=== PATIENT | female | born 1970 | race Caucasian/White ===

== ENCOUNTER 2022-11-14 11:15 | Outpatient (CLI) | payer OTHER, SELFPAY ==
--- NOTE | ~2022-11-14 | US_ITS ---
Duplex Sonography of the left extremity: Indication: Pain Findings: Sagittal and transverse B-mode images as well as color-flow imaging were performed on the l eft femoral and popliteal veins. B-mode examination was done without and with compression in the tra nsverse plane. There is good visualization of the common femoral, proximal profunda femoral, superfi cial femoral, greater saphenous, and popliteal veins. Normal flow was seen on color-flow imaging. No rmal compressibility was demonstrated. Visualized calf veins are also patent. Impression: No evidence of deep vein thrombosis involving the left lower extremity. Reviewed, dictated and finalized at location M. Impression: No evidence of deep vein thrombosis involving the left lower extremity.
== END 2022-11-14 11:16 | disposition home or self-care (01) ==
PROVIDERS: PCP Physician Assistant; Visit Provider Physician Assistant
DX: M79.605 Pain in left leg (principal)
CPT/HCPCS: 93971

== ENCOUNTER 2023-11-16 08:58 | Emergency (ER) | payer OTHER, SELFPAY ==
[2023-11-16 09:13] VITALS: BP 126/78; PULSE 80; RESP 16; TEMP 36.6; O2SAT 100
--- NOTE | 2023-11-16 09:47 | ED.LOWEXIN ---
HPI - Extremity Injury (Lower) General Chief Complaint: Extremity Injury, Lower Stated Complaint: Right Foot Pain Time Seen by Provider: 11/16/23 09:48 Source: patient and RN notes reviewed Mode of arrival: ambulatory Limitations: no limitations History of Present Illness HPI Narrative: 53-year-old female presents concern for right foot pain. Reports pain is in the arch of the foot and radiates back up to the Achilles tendon. She denies any injury or trauma. Reports pain started intermittently in August, she reports it has worsened in the last 3 days after she stood on concrete for a long time. She reports she has used an ice bottle to roll on her foot, taken Aleve which helps a little bit. She reports the pain had been worse in the morning, now it is worse any time she goes from sitting to standing. She denies bruising. Reports some swelling on the pedal foot yesterday. MD complaint: other (Foot pain) Related Data Home Medications Medication Instructions Recorded Confirmed bupropion HCl 300 mg 24 hr tablet, 300 mg PO DAILY 11/16/23 11/16/23 extended release dextroamphetamine-amphetamine 10 10 mg PO DAILY 11/16/23 11/16/23 mg tablet epinephrine 0.3 mg/0.3 mL 0.3 mg IM DIRECTED 11/16/23 11/16/23 injection, auto-injector insulin syringe-needle U-100 0.3 11/16/23 11/16/23 mL 31 gauge x /16 levothyroxine 175 mcg tablet 175 mcg PO DAILY 11/16/23 11/16/23 Allergies Allergy/AdvReac Type Severity Reaction Status Date / Time peanut Allergy Mild Itching Verified 11/16/23 09:30 mold Allergy Difficulty Verified 11/16/23 09:30 Breathing Review of Systems Review of Systems: CONSTITUTIONAL: Denies malaise, chills, sweats, or fever. SKIN: Denies rash or itching, open skin, laceration, abrasion, redness, warmth MUSCULOSKELETAL: Reports right foot pain, 1 instance of swelling NEUROLOGIC: Denies numbness, weakness All systems reviewed & are unremarkable except as noted in HPI and below PMFSH Comments At time of signature, agree with nursing past medical, surgical, social and family history. There is no relevant family history pertinent to the presenting complaint Exam Narrative: GENERAL: Well-appearing, well-nourished, and in no acute distress. HEAD: Normocephalic, atraumatic. EYES: PERRLA, conjunctivae clear NECK: Supple. CHEST: Speaks in full sentences. No respiratory distress. HEART: Regular rate and rhythm. Normal and equal peripheral pulses. EXTREMITIES: Right foot, digits have grossly normal strength and sensation, normal range of motion. No edema or ecchymosis. Normal sensation with sensitivity to light touch and pain. No point tenderness. No open wounds, no skin tenting, no devitalized tissue or atrophy, no trophic changes, no obvious deformity, alignment normal, nearby joints and structures intact. Distal pulses palpable and equal bilaterally, skin warm, dry, pink. Capillary refill less than 3 seconds. SKIN: Warm, dry, no rash. NEURO: Alert and oriented x3. PSYCH: Normal mood and affect Course Course Emergency Course: Patient is aware of diagnosis, understands and agrees to treatment plan. Anticipatory guidance given. Patient agrees to follow-up as directed and is aware of reasons to seek care at the emergency department. Portions of this record may have been created with voice recognition software Level of Care: Express Care Visit Vital Signs Vital signs: Vital Signs Temperature 97.8 F 11/16/23 09:13 Pulse Rate 80 11/16/23 09:13 Respiratory Rate 16 11/16/23 09:13 Blood Pressure 126/78 11/16/23 09:13 Pulse Oximetry 100 11/16/23 09:13 Temperature 97.8 F 11/16/23 09:13 Pulse Rate 80 11/16/23 09:13 Respiratory Rate 16 11/16/23 09:13 Blood Pressure 126/78 11/16/23 09:13 Pulse Oximetry 100 11/16/23 09:13 Reviewed. MDM - Extremity Injury (Lower) MDM Narrative Medical decision making narrative: Patients injury and pain is consistent with mu
== END 2023-11-16 09:59 | disposition home or self-care (01) ==
PROVIDERS: Emergency Provider Nurse Practitioner; PCP Physician Assistant
DX: M79.671 Pain in right foot (principal); M19.90 Unspecified osteoarthritis, unspecified site; F41.9 Anxiety disorder, unspecified
CPT/HCPCS: 99213; G0463

== ENCOUNTER 2024-10-16 09:17 | Outpatient (CLI) | payer OTHER, SELFPAY ==
--- NOTE | ~2024-10-16 | MR_ITS ---
MRI of the right knee Clinical history: Chondromalacia Technique: Coronal proton density and proton density-weighted images, sagittal proton-density and T2 fat-sat images, and axial proton-density fat-saturated images were acquired. Findings: Anterior and posterior cruciate ligaments are intact. Medial collateral ligament and the la teral collateral ligament complex are intact. Popliteus tendon is intact. No definite medial or lateral meniscal tear. There is high-grade chondral malacia along the lateral facet of the patella. There is diffuse moderat e to high-grade chondromalacia the femoral trochlea. There is moderate chondral thinning at the media l and lateral joint lines. Small tricompartmental osteophytes are present. Extensor mechanism is intact. Minimal joint effusion present. Moderate Park's cyst present, with sep tations. Impression: Tricompartmental degenerative change, as detailed above. Moderate Park's cyst. Reviewed, dictated and finalized at [facility]. Impression: Tricompartmental degenerative change, as detailed above. Moderate Park's cyst.
== END 2024-10-16 09:18 | disposition home or self-care (01) ==
LOC: MICIMG 09:21
PROVIDERS: PCP Orthopaedic Surgery; Visit Provider Orthopaedic Surgery
DX: M17.11 Unilateral primary osteoarthritis, right knee (principal); M71.21 Synovial cyst of popliteal space [Baker], right knee; M94.261 Chondromalacia, right knee
CPT/HCPCS: 73721

== ENCOUNTER 2024-11-22 02:09 | Day surgery (SDC) | payer OTHER, SELFPAY ==
[2024-11-11 08:38] VITALS: BMI 36.1
--- NOTE | 2024-11-11 08:47 | PC.NURSE ---
Report to the Outpatient Waiting Room, entrance under the green pavilion located off [facility], at time _0800_ on date _[id number]_. Planned Procedure Time: _1000_.? Time changes happen often and if your time is changed the preop area will call you the afternoon before. - You and your visitor will be asked to self-screen and do not enter if you have any COVID symptoms. Please call surgeon if you need to reschedule. - A mask is optional within the hospital at this time. Patients may have clear liquids (water, carbonated beverages, clear teas, apple juice) until 3 hours prior to surgery with a maximum of 20 ounces. - No food from midnight until time of surgery and no smoking, or chewing tobacco (or any form of nicotine). No chewing gum, candy or mints. Take only the following medications with a SIP of water on the morning of surgery: __Levothyroxine and Bupropion DO NOT STOP ANY OF YOUR OTHER PRESCRIPTION MEDICATIONS PRIOR TO SURGERY EXCEPT THE FOLLOWING Hold all vitamins and supplements for 3 days per anesthesiologist. Medications to discontinue per physician Date to take last vqdn__[phone]___ Please no make-up, nail colombian, hairspray, perfume, deodorant, or body powder the day of surgery.? No jewelry (including any body piercings) or valuables the day of surgery, leave them at home.? Please take a shower or bath the night before, or the morning of, surgery with an antibacterial soap.? Wear comfortable, loose fitting clothing.? - Jewelry must be removed prior to entering the operating room.? Rings and piercings that are not removed may be cut off. - The hospital will not accept responsibility for valuables.? - Please leave all valuables, including medications, at home the day of surgery. If you are going home after surgery, a licensed ambulance driver must drive you home.? - NO public transportation without another adult if you receive anesthesia. - We recommend that an adult stay with you for 24 hours following discharge. - We also recommend that you do not drive, make important decision, drink alcoholic beverages, or take any drugs that were not prescribed by your health care provider for at least 24 hours after your discharge time. Follow any additional instructions given to you from your surgeon. Telephone instructions given to __Aisha___and asked if any additional questions and then verbalized understanding. Patient advised to call surgeon office or pre surgery nurse liaison [phone] if any additional questions.
--- NOTE | 2024-11-18 07:03 | PM.IMHP ---
H&P: HPI History of Present Illness Date/Time: 11/18/24 07:03 Chief Complaint: Patient is knee pain right. She has locking catching with any manipulation. Pain is localized medially and worse with activity and somewhat relieved by rest. She has failed conservative treatment and has an MRI that shows meniscal tear. She would like to consider arthroscopic intervention at this time. Review of Systems Musculoskeletal: Musculoskeletal: Reports arthralgias, Reports joint swelling and Reports stiffness PMFSH Past Medical History Medical History Thyroid disease Gall bladder disease Arthritis Anxiety Surgical History Surgical History History of total left knee replacement History of hysterectomy History of cholecystectomy H/O gastric sleeve Family History Family History Other Alcoholism Cancer Cerebrovascular accident Depression Hypertension Thyroid disease Social History Social History Years smoked: 4 Smoking status: Current every day smoker Tobacco type: cigarettes Alcohol intake: current Alcohol use details: occasionally Substance use type: does not use Do You Feel Safe in your Home?: Yes Lack of Transportation: No Lack of Food: Never True Current Housing: I Have Housing Concerned About Future Housing: No Difficulty Paying Gas/Electric Bills: No Difficulty Paying for Meds: No Currently Unemployed: No Education: Trade/Vocational Certificate Difficulty w/ Childcare or Family Care: No Living arrangements: with family Occupation/Education: occupation Spiritual care concerns: No Meds Home Medications and Allergies Home Medications ?Medication ?Instructions ?Recorded ?Confirmed ?Type bupropion HCl 300 mg 24 hr tablet, 300 mg PO DAILY 11/16/23 11/11/24 History extended release epinephrine 0.3 mg/0.3 mL 0.3 mg IM DIRECTED 11/16/23 11/11/24 History injection, auto-injector levothyroxine 175 mcg tablet 175 mcg PO DAILY 11/16/23 11/11/24 History dextroamphetamine-amphetamine 20 20 mg PO TID 08/26/24 11/11/24 History mg tablet progesterone micronized 100 mg 100 mg PO QAM 08/26/24 11/11/24 History capsule multivitamin (Daily Multi-Vitamin 1 tablet PO DAILY 11/11/24 11/11/24 History tablet) Allergies Allergy/AdvReac Type Severity Reaction Status Date / Time Penicillins Allergy Severe rash Verified 11/11/24 08:35 peanut Allergy Mild Itching Verified 11/11/24 08:35 mold Allergy Difficulty Verified 11/11/24 08:35 Breathing Exam Narrative: On exam patient is catching and locking of the right knee. She has mechanical-type symptoms. She is tender medially has a positive Janet's and pain to palpation manipulation. She walks with an antalgic gait. Neurologically she is grossly intact. Radiology Reports: Comments: Magnetic Resonance Report Signed with Addenda Patient: Aisha Wills cc: Jared Benites MD~ ADDENDUMAdditional review of images demonstrates hyperintense signal in the posterior horn of the medial meniscus. This could reflect a subtle horizontal/oblique tear versus intrasubstance degenerative signal. MRI of the right knee Clinical history: Chondromalacia Technique: Coronal proton density and proton density-weighted images, sagittal proton-density and T2 fat-sat images, and axial proton-density fat-saturated images were acquired. Findings: Anterior and posterior cruciate ligaments are intact. Medial collateral ligament and the lateral collateral ligament complex are intact. Popliteus tendon is intact. No definite medial or lateral meniscal tear. There is high-grade chondral malacia along the lateral facet of the patella. There is diffuse moderate to high-grade chondromalacia the femoral trochlea. There is moderate chondral thinning at the medial and lateral joint lines. Small tricompartmental osteophytes are present. Extensor mechanism is intact. Minimal joint effusion present. Moderate Park's cyst present, with septations. Impression: Tricompartmental degenerative change, as detailed above. Moderate Park's cyst. Reviewed, dictated and finalized at location . Knee X-Ray 10/19/24 Knee MRI 10/18/24 Orthopedics Result Report 10/19/24 Assessment and Plan Assessment and plan (1) Acute medial meniscus tear of right knee: Code(s): S83.241A - Other tear of medial meniscus, current injury, right knee, initial encounter Status: Acute Assessment and Plan: Patient is knee pain right. She has a meniscal tear. She has failed conservative treatment like to consider arthroscopic intervention. I discussed the risks, benefits, limitations, and alternatives in detail. Will proceed with arthroscopy of the right knee partial meniscectomy proceed as indicated. She understands and agrees.
[2024-11-22] VITALS (9 sets, daily range): BP systolic 97–143; BP diastolic 63–79; PULSE 59–92; RESP 12–20; TEMP 36.5–36.9; O2SAT 96–99
--- OUTSIDE RECORDS SUMMARY | 2024-11-22 02:13 | XMS_ITS | Clinical Summary ---
Author Organization [facility] [address] Address [address] [place] [address] Phone Care Team Providers Care Invoicing Machine Operator Name Role Phone Raj Maloney PAC Primary Care Provider Allergies Active Allergy Reactions Criticality Noted Date Comments Penicillins Hives High 05/16/2016 Medications Multiple Vitamin (MULTI-VITAMINS) Tablet Take by mouth. Active propranolol (INDERAL LA) 80 MG CAPSULE SR 24 HR TAKE 1 CAPSULE BY MOUTH DAILY. 30 Cap 2 12/15/2018 Active busPIRone (BUSPAR) 5 MG TabletIndication s:Recurrent major depressive disorder, remission status unspecified (HCC) TAKE 1 TABLET BY MOUTH 2 TIMES DAILY 60 Tab 2 12/25/2018 Active azithromycin (ZITHROMAX Z-PJ) 250 MG Tablet 2 tab(s) daily for 1 day, then 1 tab(s) daily for days 2-5. 6 Tab 03/22/2019 Active tiZANidine HCl 4 MG CapsuleIndicatio ns:Contusion of right knee, subsequent encounter Take 1 Capsule by mouth every 8 hours as needed 30 Cap 2 09/07/2019 Active levothyroxine (SYNTHROID) 175 MCG Tablet Take 1 tablet by mouth every day 30 minutes before food or other medications. 30 Tab 2 09/07/2019 Active FLUoxetine (PROZAC) 40 MG CapsuleIndicatio ns:Recurrent major depressive disorder, remission status unspecified (HCC) Take one capsule by mouth daily. 30 Cap 2 09/07/2019 Active Active Problems Problem Noted Date Diagnosed Date Trochanteric bursitis of left hip 01/20/2018 Spondylosis of lumbar region without myelopathy or radiculopathy 10/29/2017 Sacroiliac joint dysfunction of left side 2017 Trochanteric bursitis of both hips 07/21/2017 Chronic bilateral low back pain with bilateral s ciatica 11/20/2016 Tuberculin skin test encounter 06/03/2016 Acquired hypothyroidism 05/16/2016 Obesity, morbid, BMI 40.0-49.9 05/16/2016 Recurrent major depressive disorder 05/16/2016 Immunizations Immunization Administration Dates Next Due Influenza Vaccine 10/03/2016 TB Skin Test 05/31/2016 Family History Medical History Relation Name Comments Diabetes Father Ovarian Cancer Maternal Aunt Cancer Maternal Grandfather Heart Disease Maternal Grandmother Endometriosis Maternal Uncle Hypertension Mother Cancer Paternal Grandfather Relation Name Status Comments Father Alive Maternal Aunt Maternal Grandfather Maternal Grandmother Maternal Uncle Mother Alive Paternal Grandfather Social History Tobacco Use Types Packs/Day Years Used Date Smoking Tobacco: Former Smokeless Tobacco: Never Tobacco Cessation:Counseling Given: No Alcohol Use Standard Drinks/Week Comments Yes 0 (1 standard drink = 0.6 oz pur e alcohol) drinks socially PHQ-2 Answer Date Recorded PHQ-2 Score 0 12/14/2018 Comments No Sex and Gender Information Value Date Recorded Sex Assigned at Not on file Legal Sex Female 2:38 AM CDT Gender Identity Not on file Sexual Orientation Not on file Last Filed Vital Signs Vital Sign Reading Time Taken Comments Blood Pressure 128/84 10/02/2018 11:09 AM CDT Pulse 60 10/02/2018 11:09 AM CDT Temperature 37.4 C (99.4 F) 10/02/2018 11:09 AM CDT Respiratory Rate 14 07/10/2018 11:06 AM CDT Oxygen Saturation 98% 10/02/2018 11:09 AM CDT Inhaled Oxygen Concentration - - Weight 109.8 kg (242 lb) 10/02/2018 11:09 AM CDT Height 168.9 cm (5' 6.5) 10/02/2018 11:09 AM CD T Body Mass Index 38.47 10/02/2018 11:09 AM CDT Plan of Treatment Health Maintenance Due Date Last Done Comments Hepatitis C Virus (HCV) Screening 1971 TdaP Immunization 1971 Hepatitis B Immunization (1 of 3 - 19+ 3-dose series) 1990 Cologuard 02/29/2016 Colonoscopy 02/29/2016 Colorectal Cancer Screening 02/29/2016 Immunochemical Fecal Occult Blood 02/29/2016 Pneumococcal Immunization (5 0+ years) (1 of 1 - PCV) 2021 Zoster Immunization (1 of 2) 2021 SARS-COV-2 Immunization (3 - 2023- season) 2023 09/24/2020, 09/03/2020 Influenza Immunization (#1) 2024 10/03/2016 Respiratory Syncytial Virus (RSV) Immunization (Adult) (1 - 1-dose 75+ series) 2046 Discussion re Starting/Frequency of Mammograms Discontinued 04/02/2017 Mammogram Discontinued 04/02/2017 Human Papillomavirus (HPV) Immunization Aged Out No longer eligible based on patient's age to complete this topic Meningococcal Immunization (ACWY) Aged Out No longer eligible based on patient's age to complete this topic Rotavirus Immunization Aged Out No lo nger eligible based on patient's age to complete this topic Procedures Procedure Name Priority Date/Time Associated Diagnosis Comments ALEX SCREENING BILATERAL DIGITAL WO CAD Routine 04/02/2017 1:39 PM ELECTRICAL PRODUCTS ENGINEER Visit for screening mammogram from Last 3 Months or Most Recently Relevant to Health Maintenance Results * ALEX SCREENING BILATERAL DIGITAL WO CAD (04/02/2017 1:39 PM ELECTRICAL PRODUCTS ENGINEER) Anatomical Region Laterality Modality breast Bilateral Mammography 04/02/2017 1:56 PM ELECTRICAL PRODUCTS ENGINEER Impressions 04/02/2017 1:56 PM ELECTRICAL PRODUCTS ENGINEER ASSESSMENT: BI-RADS 1; NEGATIVE RECOMMENDATIONS: Yearly screening mammogram of both breasts in 1 year. CAD used DICTATION LOCATION: [facility] Signed By: Sherri Loredo M.D. Narrative 04/02/2017 1:56 PM ELECTRICAL PRODUCTS ENGINEER PATIENT HISTORY: Family history of ovarian cancer at age 50 or over in maternal aunt. Took hormonal contraceptives for 6 months. Patient's BMI is 41.7. Last mammogram was performed 2 years and 2 months ago. REASON FOR EXAM: screening, asymptomatic. FINDINGS: ALEX SCREENING BILATERAL DIGITAL WO CAD Bilateral CC and MLO view(s) were taken. Technologist: RT Dami(R)(M) Prior study comparison: February 13, 2015, bilateral mammogram, performed at [facility]. The breast tissue is average. No significant changes when compared with prior studies. Raj RUDD IMG MAMMO ORDERABLES F inal Result from Last 3 Months or Most Recently Relevant to Health [place] [address] [employer] Care Teams Invoicing Machine Operator Relationship Specialty Start Date End Date Raj Maloney PAC [address], [place] [id number] PCP - General Family Medicine 05/16/16
--- OUTSIDE RECORDS SUMMARY | 2024-11-22 02:13 | XMS_ITS | Clinical Summary ---
Author Organization [facility] [employer] Address [address] [place] [address] Care Team Providers Care Warp Dyeing Tender Name Role Phone Shon Klein DO Unavailable Source Comments [facility] [employer],non-owned Affiliates and Associated Physician Practices is amultiple site organization consisting of ambulatory clinics and hospital sitesin [place], [place], [place] and [place]. This disclosure is being madepursuant to the Care Everywhere program and may not contain all information available regarding this patient. Last updated 18.[facility] [employer] Allergies Active Allergy Reactions Criticality Noted Date Comments Penicillins Urticaria 01/25/2015 Medications * Be aware that medications may not be up to date on this document. Alwaysverify current medications with the patient. Calcium Carbonate-Vitami n D (CALCIUM + D PO) Active Cyanocobalamin (B-12 PO) Active Ferrous Sulfate (IRON CR PO) Active HYDROcodone-acet aminophen (NORCO) 5-325 MG tablet Take 1 Tab by mouth every 4 hours as needed for Pain 50 Tab 02/05/2016 Active oxyCODONE-acetam inophen (PERCOCET) 5-325 MG tablet Take 1 Tab by mouth every 4 hours as needed for Pain 50 Tab 02/26/2016 Active levothyroxine (SYNTHROID) 150 MCG tablet Take 150 mcg by mouth once daily 0 02/27/2016 Active oxyCODONE-acetam inophen (PERCOCET) 5-325 MG tablet Take 1 Tab by mouth every 4 hours as needed for Pain 50 Tab 03/25/2016 Active meloxicam (MOBIC) 15 MG tablet Take 1 Tab by mouth once daily 30 Tab 04/01/2016 Active Active Problems Problem Noted Date Diagnosed Date History of total left knee replacement on 01/26/2016 Resolved Problems Problem Noted Date Diagnosed Date Resolved Date Primary osteoarthritis of left knee 12/28/2015 01/26/2016 History of arthroscopy of le ft knee on 02-21-15 02/24/2015 01/26/2016 Social History Tobacco Use Types Packs/Day Years Used Date Smoking Tobacco: Former Cigarettes Q uit: 01/21/2001 Alcohol Use Standard Drinks/Week Comments Yes 0 (1 standard drink = 0.6 oz pur e alcohol) rarely Comments No Sex and Gender Information Value Date Recorded Sex Assigned at Not on file Legal Sex Female 6:07 AM FINISHED YARN EXAMINER Gender Identity Not on file Sexual Orientation Not on file Last Filed Vital Signs Vital Sign Reading Time Taken Comments Blood Pressure 125/57 01/25/2016 8:36 AM CDT Pulse 83 01/25/2016 8:36 AM CDT Temperature 36.9 C (98.4 F) 01/25/2016 8:36 AM CDT Respiratory Rate 18 01/25/2016 8:36 AM CDT Oxygen Saturation 99% 01/25/2016 8:36 AM CDT Inhaled Oxygen Concentration - - Weight 112 kg (247 lb) 01/22/2016 6:45 AM CDT Height 170.2 cm (5' 7) 01/22/2016 6:45 AM CDT Body Mass Index 38.69 01/22/2016 6:45 AM CDT Plan of Treatment Health Maintenance Due Date Last Done Comments COLOGUARD (AGES 45-75) - COL ON CA SCREENING 1971 COLON MONITORING 1971 COLONOSCOPY - COLON CA SCREENING 1971 CT COLONOGRAPHY - COLON CA SCREENING 1971 Colorectal Cancer Screening 1971 FIT - COLON CA SCREENING 1971 FLEX SIG - COLON CA SCREENING 1971 LIPID TESTING 1971 MAMMOGRAM 1971 HIV SCREENING 1986 HEPATITIS C SCREENING 02/23/1989 DTAP/TDAP/TD VACCINES (1 - Tdap) 1990 HEPATITIS B VACCINE (1 of 3 - 19+ 3-dose series) 1990 PNEUMOCOCCAL VACCINE 50+ (1 of 1 - PCV) 2021 ZOSTER VACCINE (1 of 2) 2021 COVID-19 VACCINE (3 2023-2 5 season) 2023 09/24/2020, 09/03/2020 DEPRESSION SCREENING 04/14/2024 INFLUENZA VACCINE (#1) 2024 HIB VACCINE Aged Out No longer eligi ble based on patient's age to complete this topic HPV VACCINE Aged Out No longer eligi ble based on patient's age to complete this topic MENINGOCOCCAL (Group B) VACCINE SHARED DECISION-MAKING Aged Out No longer eligible based on patient's age to complete this topic MENINGOCOCCAL GROUPS A/C/Y/W VACCINE Aged Out No longer eligible b ased on patient's age to complete this topic Medical Devices Implanted Type Area Technical Assistance Consultant Device Identifier Shelf Expiration Date Model / Serial / Lot Cmnt Bone Co Hv 40gm Implanted:Qty: 1 on 01/22/2016 by Shon Klein DO at [facility] Left: Knee [employer] 06/11/2017 [id number] / / [id number] Bsplt Tib Agc Kn Post Stab Mld Prm Intlk Implanted:Qty: 1 on 01/22/2016 by Shon Klein DO at [facility] Left: Knee [employer] [id number] 06/15/2020 [id number] / / [id number] Cmpnt Ptlr 34mm 1 Pg Wire Ascnt Arcm Kn Implanted:Qty: 1 on 01/22/2016 by Shon Klein DO at [facility] Left: Knee [employer] [id number] 11/05/2020 [id number] / / [id number] Cmpnt Fem Kn Lt Cr Agc Por [id number] Implanted:Qty: 1 on 01/22/2016 by Shon Klein DO at [facility] Left: Knee [employer] [id number] 12/26/2025 [id number] / / [id number] Insurance [facility] Advance Directives * Full Code (Latest Code Status on File) Date Activated Date Inactivated Comments 01/22/2016 10:57 AM 01/25/2016 1:32 PM Care Teams Warp Dyeing Tender Relationship Specialty Start Date End Date Shon Klein DO Orthopedic Surgery 01/25/15
--- OUTSIDE RECORDS SUMMARY | 2024-11-22 02:13 | XMS_ITS | Encounter Summary ---
Author Organization [facility] Address [address] [place] [address] Phone Care Team Providers Care Dye And Chemical Coordinator Name Role Phone Raj Maloney PAC Primary Care Provider Reason for Visit * Reason Comments Medication Refill Encounter Details Date Type Department Care Team (Late st Contact Info) Description 02/01/2020 Refill [facility] [address] [place] [address] Raj Maloney, PAC [address] [place], [place] [address] Medication Refill Social History Tobacco Use Types Packs/Day Years Used Date Smoking Tobacco: Former Smokeless Tobacco: Never Alcohol Use Standard Drinks/Week Comments Yes 0 (1 standard drink = 0.6 oz pur e alcohol) drinks socially PHQ-2 Answer Date Recorded PHQ-2 Score 0 12/14/2018 Comments No Sex and Gender Information Value Date Recorded Sex Assigned at Not on file Legal Sex Female 2:38 AM CDT Gender Identity Not on file Sexual Orientation Not on file documented as of this encounter Miscellaneous Notes * Telephone Encounter - Gissel Rudd CMA - 02/01/2020 1:12 PM CDT Requested Prescriptions Pending Prescriptions Disp Refills ??? FLUoxetine (PROZAC) 40 MG Capsule [Pharmacy Med Name: FLUoxetine HCl 40 MG Oral Capsule] 30 Cap0 Sig: Take 1 capsule by mouth once daily ??? tiZANidine HCl 4 MG Capsule [Pharmacy Med Name: tiZANidine HCl 4 MG Oral Capsule] 30 Cap 0 Sig: TAKE 1 CAPSULE BY MOUTH EVERY 8 HOURS NEEDED Patient has moved from area and has a new primary. * Telephone Encounter - Raj Maloney PAC - 02/01/2020 8:01 AM CDT Please refill as requested. Thank you. documented in this encounter Plan of Treatment Not on file documented as of this encounter Visit Diagnoses Diagnosis Recurrent major depressive disorder, remission status unspecified (HCC) Contusion of right knee, subsequent encounter documented in this encounter Additional Health Concerns Assessment Noted Time PHQ-9 Depression Total Score: 0 10/03/19 19 11:08 AM CDT documented as of this encounter Care Teams Dye And Chemical Coordinator Relationship Specialty Start Date End Date Raj Maloney PAC [address] [place] [address] PCP - General Family Medicine 05/16/16 documented as of this encounter
--- OUTSIDE RECORDS SUMMARY | 2024-11-22 02:13 | XMS_ITS | Encounter Summary ---
Author Organization [facility] Address [address] [place] [address] Care Team Providers Care Home Assessment Nurse Name Role Phone Yudi Mensah MD Primary Care Provider [phone] Milagros Mar MD Primary Care Provider + Encounter Details Date Type Department Care Team (Late st Contact Info) Description 02/21/2022 Anchor™t Message Enc [facility] Medical Group Family Medicine [facility] [address] [place] [phone] Yudi Mensah MD [address] [place] [phone] Question Social History Tobacco Use Types Packs/Day Years Used Date Smoking Tobacco: Former Cigarettes Q uit: 10/03/2003 Smokeless Tobacco: Never Alcohol Use Standard Drinks/Week Comments Yes 0 (1 standard drink = 0.6 oz pur e alcohol) social PHQ-2 Answer Date Recorded PHQ-2 Score - If the patient scores above 3, please move on to questions 3-9 1 01/23/2022 Comments No Sex and Gender Information Value Date Recorded Sex Assigned at Female 11/02/2024 11:01 AM CDT Legal Sex Female 4:17 PM CDT Gender Identity Female 01/22/2022 9:30 AM CDT Sexual Orientation Straight 01/22/2022 9: 30 AM CDT 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 No / Unsure 01/23/2022 7:47 AM CDT documented as of this encounter Plan of Treatment Upcoming Encounters Date Type Department Care Team (Late st Contact Info) Description 12/14/2024 9:30 AM CDT Appointment [facility] [address] [facility] [address] [place] [address] Milagros Mar MD [address] [place] [phone] 12/14/2024 10:20 AM CDT Appointment [facility] Imaging Center Mammography [address] [place] [address] Milagros Mar MD [address] [place] [address] 01/18/2025 9:40 AM CDT Allied Health/Nurse Visit [facility] Medical Group Family Medicine - [address] [place] [address] Milagros Mar MD [address] [facility] [address] [place] [phone] 11/22/2025 8:10 AM CDT Office Visit [facility] Medical Group Family Medicine - [address] [place] [address] Milagros Mar MD [address] [facility] [address] [place] [phone] documented as of this encounter Visit Diagnoses Not on filedocumented in this encounter Additional Health Concerns Assessment Noted Time PHQ-9 Depression Total Score: 10 022 8:00 AM CDT documented as of this encounter Care Teams Home Assessment Nurse Relationship Specialty Start Date End Date Yudi Mensah MD [address] [facility] [place] [address] PCP - General FAMILY PRACTICE 10/01/21 11/15/24 Milagros Mar MD [address] [place] [address] PCP - General FAMILY PRACTICE 11/16/24 documented as of this encounter
--- OUTSIDE RECORDS SUMMARY | 2024-11-22 02:13 | XMS_ITS | Encounter Summary ---
Author Organization [facility] Address [facility] [place] [address] Care Team Providers Care Communications Operator Name Role Phone Yudi Mensah MD Primary Care Provider [phone] Milagros Mar MD Primary Care Provider + Encounter Details Date Type Department Care Team (Late st Contact Info) Description 11/04/2024 [employer] Message Enc [facility] Medical Group Family Medicine - [place] [address] [place] [address] Milagros Mar MD [address] [place] [address] Reschedule Appointment Social History Tobacco Use Types Packs/Day Years Used Date Smoking Tobacco: Former Cigarettes Q uit: 10/03/2003 Smokeless Tobacco: Never Alcohol Use Standard Drinks/Week Comments Yes 0 (1 standard drink = 0.6 oz pur e alcohol) social PHQ-2 Answer Date Recorded PHQ-2 Score - If the patient scores above 3, please move on to questions 3-9 0 03/15/2022 Comments No Sex and Gender Information Value Date Recorded Sex Assigned at Female 11/02/2024 11:01 AM CDT Legal Sex Female 4:17 PM CDT Gender Identity Female 01/22/2022 9:30 AM CDT Sexual Orientation Straight 01/22/2022 9: 30 AM CDT 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 [address] [place] [address] Milagros Mar MD [address] [facility] [address] [place] [address] 12/14/2024 10:20 AM CDT Appointment [facility] Imaging Center Mammography [address] [place] [address] Milagros Mar MD [address] [address] 01/18/2025 9:40 AM CDT Allied Health/Nurse Visit [facility] Medical Group Family Medicine - [address] [address] Milagros Mar MD [address] [phone] 11/22/2025 8:10 AM CDT Office Visit [facility] Medical [facility] Family Medicine - [address] [address] Milagros Mar MD [address] [address] documented as of this encounter Visit Diagnoses Not on filedocumented in this encounter Additional Health Concerns Assessment Noted Time PHQ-9 Depression Total Score: 6 03/15/20 22 7: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
--- OUTSIDE RECORDS SUMMARY | 2024-11-22 02:13 | XMS_ITS | Clinical Summary ---
Author Organization [facility] Address [address] [place] [address] Care Team Providers Care Reconciliation Accountant Name Role Phone Milagros Mar MD Primary Care Provider + Allergies Active Allergy Reactions Criticality Noted Date Comments Penicillins Rash,Hives High 01/25/2015 hives Medications multivitamin tablet Take 1 tablet by mouth daily. Active CALCIUM CARBONATE-VITAM IN D OR Take by mouth daily. Active amphetamine-dex troamphetamine (ADDERALL) 10 MG tablet TAKE 2 TABLETS BY MOUTH IN THE MORNING AND 1 IN THE EVENING 5 Active estradiol (VIVELLE-DOT) 0.075 MG/24HR estradiol 0.075 mg/24 hr semiweekly transdermal patch Apply 1 patch twice a week by transdermal route. apply to lower abdomen and hip 025 Discontin ued(Thera py completed ) FLUoxetine (PROZAC) 20 MG capsuleIndicati ons:Mild major depression,Mild anxiety Take 1 capsule (20 mg total) by mouth nightly. 90 capsule 1 2 025 Discontin ued(Thera py completed ) liraglutide, Weight Management, (SAXENDA) 18 MG/3ML injectionIndica tions:Obesity (BMI 30-39.9) Start With: 0.6 mg (0.1 mL) SC once daily x7 days, then 1.2 mg (0.2 mL) SC once daily x7 days, then 1.8 mg (0.3 mL) SC once daily x 7 days, then 2.4 mg (0.4 mL) SC once daily x 7 days, then 3 mg (0.5 mL) SC once daily. 5 pen 1 2 025 Discontin ued(Thera py completed ) Insulin Pen Needle (PEN NEEDLES) 32G X 4 MM MiscIndications :Obesity (BMI 30-39.9) Use to administer daily saxenda dosage 100 each 1 2 025 Discontin ued(Thera py completed ) levothyroxine (SYNTHROID) 112 MCG tabletIndicatio ns:Hypothyroidi sm, unspecified type Take 1.5 tablets (168 mcg total) by mouth every morning. 45 tablet 1 2 025 Discontin ued(Thera py completed ) Active Problems Problem Noted Date Diagnosed Date Obesity, morbid, BMI 40.0-49.9 05/16/2016 Assessment & Plan (11/16/2024 1:33 PM CDT): Encouraged dietary changes. Recurrent major depressive disorder 05/16/2016 Overview (11/16/2024): Taking wellbutrin. Previously on fluoxetine. Acquired hypothyroidism 05/16/2016 Kenji's thyroiditis 01/17/2016 Overview (11/16/2024): Takes combination of levothyroxine, liothyronine. Resolved Problems Problem Noted Date Diagnosed Date Resolved Date Encounter for preventive health examination 07/22/2018 12/24/2019 Tuberculin skin test encounter 06/03/2016 12/24/2019 Preoperative evaluation to r ule out surgical contraindication 01/17/2016 01/17/2016 Preoperative evaluation to r ule out surgical contraindication 01/17/2016 12/24/2019 Encounters Date Type Department Care Team Description 11/19/2024 MyChart Message Enc [address] [place] [address] Milagros Mar MD Reaction to Tetnus 11/16/2024 1:00 PM CDT Office Visit [address] [place] [address] Milagros Mar MD Follow Up (Transferring from Dr. Camarena. ); Annual (Overdue for annual) 11/16/2024 Travel 11/04/2024 MyChart Message Enc [facility] Medical Group [facility] [address] [facility] [address] [place] [address] Milagros Mar MD Reschedule Appointment 10/19/2024 Scan [facility] INFO [facility] Scanned, [facility] 09/30/2024 Scan [facility] INFO [facility] Scanned, [facility] from Last 3 Months Immunizations Immunization Administration Dates Next Due H1N1 2008 Influenza Vaccine 10/03/2016 Influenza (Generic) 10/03/2016 Shingrix 11/16/2024 Tdap (Adacel) 11/16/2024 Family History Medical History Relation Comments No Known Problems Brother 1 No Known Problems Brother 2 No Known Problems Brother 3 No Known Problems Daughter 1 No Known Problems Daughter 2 Arthritis Father Ovarian Cancer Maternal Aunt COLON CANCER Maternal Grandfather Cancer Maternal Grandfather Lung Breast Cancer Mother No Known Problems Sister Relation Status Comments Brother 1 Alive Brother 2 Alive Brother 3 Alive Daughter 1 Alive Daughter 2 Alive Father Alive Maternal Aunt Maternal Grandfather Mother Alive Sister Alive Social History Tobacco Use Types Packs/Day Years Used Date Smoking Tobacco: Every Day Cigarettes 0.5 5 Last attempted to quit: 10/03/2003 Smokeless Tobacco: Never Tobacco Cessation:Ready to Q uit: No; Counseling Given: Yes Comments:Vapes now stopped cigs in 2003 Alcohol Use Standard Drinks/Week Comments Yes 3.3 (1 standard drink = 0.6 oz p ure alcohol) social PHQ-2 Answer Date Recorded Patient Health Questionnaire-2 Score 0 11/16/2024 Comments No Sex and Gender Information Value Date Recorded Sex Assigned at Female 11/02/2024 11:01 AM CDT Legal Sex Female 4:17 PM CDT Gender Identity Female 01/22/2022 9:30 AM CDT Sexual Orientation Straight 01/22/2022 9: 30 AM CDT 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[facility] [employer] Not on file Not on file Not on file Last Filed Vital Signs Vital Sign Reading Time Taken Comments Blood Pressure 128/82 11/16/2024 12:52 PM CDT Pulse 90 11/16/2024 12:52 PM CDT Temperature 36.2 C (97.2 F) 11/16/2024 12:52 PM CDT Respiratory Rate 14 03/15/2022 7:20 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 Oxygen Saturation 100% 11/16/2024 12:52 PM CDT Inhaled Oxygen Concentration - - Weight 106.6 kg (235 lb) 11/16/2024 12:52 PM CDT Height 170.2 cm (5' 7) 11/16/2024 12:52 PM CDT Body Mass Index 36.81 11/16/2024 12:52 PM CDT Plan of Treatment Upcoming Encounters Date Type Department Care Team (Late st Contact Info) Description 12/14/2024 9:30 AM CDT Appointment [facility] [address] [facility] [place] [address] Milagros Mar MD [address] [facility] [address] [place] [address] 12/14/2024 10:20 AM CDT Appointment [facility] Imaging Center Mammography [address] [place] [address] Milagros Mar MD [address] [address] 01/18/2025 9:40 AM CDT Allied Health/Nurse Visit [facility] Medical [facility] Family [facility] - [address] [place] [address] Milagros Mar MD [address] [address] 11/22/2025 8:10 AM CDT Office Visit [address] [address] Milagros Mar MD [address] [place] [address] Health Maintenance Due Date Last Done Comments Colorectal Cancer Screening Colonoscopy (10 Years) 1971 Hepatitis C 1989 Hepatitis B Vaccines (1 of 3 - 19+ 3-dose series) 1990 Pneumococcal Vaccine: 50+ Years (1 of 2 - PCV) 1990 COVID-19 Vaccine (3 - 2023-2 5 season) 2023 09/24/2020, 09/03/2020 Mammogram Screening 07/19/2024 07/19/2022, 04/02/2017 Zoster Vaccines (2 of 2) 01/11/2025 11/16/2024 Annual Physical 11/16/2025 11/16/2024 DTaP, Tdap and Td Vaccines ( 2 - Td or Tdap) 11/16/2034 11/16/2024 PHQ-2 (Physician [place]) Completed 11/16/2024 Meningococcal B Vaccine Aged Out No l onger eligible based on patient's age to complete this topic Meningococcal Vaccine Aged Out No kelley candy eligible based on patient's age to complete this topic RSV Immunizations Under 20 Months Aged Out No longer eligible b ased on patient's age to complete this topic Medical Devices Implanted Type Area Salesperson Art Objects Device Identifier Shelf Expiration Date Model / Serial / Lot Speed [id number] Implanted:Qty: 1 on 10/06/2018 by Abdon Cardona DPM at [facility] Staple Left: Foot SYNTHES [id number] 02/14/2022 [id number]-1512 / / [id number] Screw Synthes 2.7 Cortical Self Tapping 28 - [id number] Implanted:Qty: 1 on 10/06/2018 by Abdon Cardona DPM at [facility] Left: Foot SYNTHES [id number] / / Explanted Type Area Salesperson Art Objects Device Identifier Shelf Expiration Date Model / Serial / Lot Drill Kit Explanted:Qty: 1 on 10/06/2018 by Abdon Cardona DPM at [facility] Left: Foot SYNTHES [id number] 10/09/2022 DK-200 / / [id number] Drill Bit Synthes 2.0 Qc 125mm - [id number] Explanted:Qty: 1 on 10/06/2018 by Abdon Cardona DPM at [facility] Left: Foot SYNTHES [id number] / / Procedures Procedure Name Priority Date/Time Associated Diagnosis Comments MG SCREENING W TIMOTEO ABELINO DIGI Routine 07/19/2022 1:59 PM CDT Encounter for screening mammogram for malignant neoplasm of breast from Last 3 Months or Most Recently Relevant to Health Maintenance Results * MG SCREENING W TIMOTEO ABELINO DIGI (07/19/2022 1:59 PM CDT) Anatomical Region Laterality Modality Breast Bilateral Mammography 07/26/2022 12:3 2 PM CDT Narrative 07/26/2022 1:35 PM CDT Examination: Screening bilateral mammogram with 3-D tomosynthesis Clinical history: Positive family history of breast cancer. No present breast related complaints. Comparison: 03/22/2020 Technique: Digital screening mammography of both breasts was performed. 3-D tomosynthesis technique was also performed. This study was read with the assistance of computer-aided detection system. Tissue density: There are scattered areas of fibroglandular density. Findings: No suspicious masses, malignant appearing calcifications, skin thickening or other abnormalities are present. No significant change from the prior exam. IMPRESSION: No suspicious mammographic findings. Recommendation: 1. Routine Screening, Bilateral Assessment: ACR BI-RADS 2 - BENIGN FINDING(S) Comments: A negative or benign mammography report should not delay follow-up or biopsy of a clinically significant finding or palpable abnormality. Regions of dense breast tissue may obscure findings on mammogram. Ordered By: YUDI CAMARENA Interpreted By: Reji León MD, 07/26/2022 12:32 PM Yudi Camarena MD MAMMO Final Result from Last 3 Months or Most Recently Relevant to Health Maintenance Insurance [facility] Care Teams Reconciliation Accountant Relationship Specialty Start Date End Date Milagros Mar MD [address] [place] [phone] PCP - General FAMILY PRACTICE 11/16/24
--- OUTSIDE RECORDS SUMMARY | 2024-11-22 02:13 | XMS_ITS | Encounter Summary ---
Author Organization 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 [address] [place] [phone] 01/18/2025 9:40 AM CDT Allied Health/Nurse Visit [facility] Family Medicine - [address] [address] Milagros Mar MD [address] [facility] [address] [place] [address] [phone] 11/22/2025 8:10 AM CDT Office Visit [facility] Family Medicine - [address] [place] [phone] Milagros Mar MD [address] [facility] [address] [place] [phone] documented as of this encounter Visit Diagnoses Not on filedocumented in this encounter Additional Health Concerns Assessment Noted Time PHQ-9 Depression Total Score: 6 03/15/20 22 7:26 AM TIP OUT WORKER documented as of this encounter Care Teams Vacuum Evaporation Operator Relationship Specialty Start Date End Date Yudi Mensah [facility] [address] [facility] [address] P[facility] - General FAMILY PRACTICE 10/01/21 11/15/24 Milagros Mar MD [address] [place] [address] PCP - General FAMILY PRACTICE 11/16/24 documented as of this encounter
[2024-11-22] MEDS: LACTATED RINGERS 1,000 ML 30 ML IV CONT (08:30)
[2024-11-22] MEDS: ACETAMINOPHEN 500 MG TABLET 1000 MG PO (08:51)
[2024-11-22] MEDS: KETOROLAC 15 MG/ML VIAL (*BKC) IV PUSH (08:51)
--- NOTE | 2024-11-22 09:23 | WPDANESEPPF ---
Anes - Initial Pre Proc Eval Procedure: Operation Date: 11/22/24 10:00 Proposed Procedures p Right Knee Arthroscopy Partial Medial Meniscectomy, Proceed As Indicated - Jared Benites MD Date/Time: 11/22/24 09:23 Surgeon: Jared Benites MD Pre Op Diagnosis: Rt Knee Med Meniscal Tear Patient Data Age: 54 Gender: F Height: 1.7 m Weight: 106.1 kg Last Vital Signs Temp 36.5 C 11/22/24 08:52 Pulse 92 11/22/24 08:52 Resp 16 11/22/24 08:52 BP 113/74 11/22/24 08:52 Pulse Ox 98 11/22/24 08:52 O2 Del Method Room Air 11/22/24 08:52 Allergies Allergy/AdvReac Type Severity Reaction Status Date / Time Penicillins Allergy Severe rash Verified 11/22/24 08:47 peanut Allergy Mild Itching Verified 11/22/24 08:47 mold Allergy Difficulty Verified 11/22/24 08:47 Breathing Home Medications ?Medication ?Instructions ?Recorded ?Confirmed ?Type bupropion HCl 300 mg 24 hr tablet, 300 mg PO DAILY 11/16/23 11/22/24 History extended release epinephrine 0.3 mg/0.3 mL 0.3 mg IM DIRECTED 11/16/23 11/11/24 History injection, auto-injector levothyroxine 175 mcg tablet 175 mcg PO DAILY 11/16/23 11/22/24 History dextroamphetamine-amphetamine 20 20 mg PO TID 08/26/24 11/22/24 History mg tablet progesterone micronized 100 mg 100 mg PO QAM 08/26/24 11/22/24 History capsule multivitamin (Daily Multi-Vitamin 1 tablet PO DAILY 11/11/24 11/22/24 History tablet) hydrocodone 5 mg-acetaminophen 325 1 tablet PO Q4H PRN pain #30 tabs 11/22/24 Rx mg tablet Patient hx anesthesia problems: none Family hx anesthesia problems: none Results Review: All pre-operative results and documents have been reviewed as part of the pre-operative evaluation. [facility] Past Medical History Medical History Thyroid disease Gall bladder disease Arthritis Anxiety Surgical History Surgical History History of total left knee replacement History of hysterectomy History of cholecystectomy H/O gastric sleeve Family History Family History Other Alcoholism Cancer Cerebrovascular accident Depression Hypertension Thyroid disease Social History Social History Years smoked: 4 Smoking status: Current every day smoker Tobacco type: cigarettes Alcohol intake: current Alcohol use details: occasionally Substance use type: does not use Do You Feel Safe in your Home?: Yes Lack of Transportation: No Lack of Food: Never True Current Housing: I Have Housing Concerned About Future Housing: No Difficulty Paying Gas/Electric Bills: No Difficulty Paying for Meds: No Currently Unemployed: No Education: Trade/Vocational Certificate Difficulty w/ Childcare or Family Care: No Living arrangements: with family Occupation/Education: occupation Spiritual care concerns: No Anes - Eval Final PreProcedure Day of Procedure 11/22/24 09:23 Patient weight: obese Heart: regular rate and rhythm Lungs: clear to auscultation Airway: Mallampati scale class 1 Neurological: alert and oriented Last oral intake: >/= 8 hours ASA classification: III Emergent: no Anesthetic plan: proceed Anesthesia type and monitoring: general LMA and standard monitoring Results Review: All pre-operative results and documents have been reviewed as part of the pre-operative evaluation. Informed Consent: The patient's anesthetic plan and its attendant risks and benefits were discussed with the patient/family/POA. Questions were solicited and answers provided to the satisfaction of the patient/family/POA.
--- NOTE | 2024-11-22 09:25 | WPDHPUPDATE1 ---
History and Physical Update Update Date/Time: 11/22/24 09:25 History and Physical has been reviewed, including an updated exam of the patient. There are NO changes in the patient's condition. Risks, benefits, and alternatives have been discussed and questions answered. Patient agrees to proceed with procedure. Will proceed with Arthroscopy, partial meniscectomy, proceed as indicated.
[2024-11-22] MEDS: ceFAZolin 2 GM in SODIUM CHLORIDE 0.9% IV 50 ML 100 ML IVPB (10:03)
[2024-11-22] MEDS: BUPIVACAINE/EPINEPHRINE 0.5% 50 ML VIAL 20 ML INFILTRATE (10:24)
--- NOTE | 2024-11-22 10:45 | W.PM.PROC2 ---
Procedure Note - Detailed Date of Procedure 11/22/24 Pre-op Diagnosis RIGHT Knee Medial and Lateral Meniscal Tears Post-op Diagnosis Same Procedure Performed RIGHT knee arthroscopy with partial meniscectomy Surgeon Jared Benites MD Anesthesia General Indications Pain, Locking and Catching Description of Procedure Patient brought to operating room # 7. An anesthetic was administered. The knee was sterilely prepped and draped in the usual manner. Standard portals were used. Superior medial portal was used for the outflow cannula, inferior lateral portal was used for the scope, inferior medial portal was used for the instruments. Arthroscopy was performed, the patellar femoral joint degenerative changes. The medial compartment showed a complex tear. The lateral compartment showed moderate tearing as well. The ACL was intact. Using baskets and ruth ann the meniscal tears were trimmed back to a stable base so the nothing further could be pulled into the joint. Any loose or delaminated fragments were gently trimmed to a stable base. She had an plica which was debrided. This was rubbing against the medial femoral condyle. At this point the instruments were withdrawn, sutures placed and patient left the operating room in satisfactory condition. Estimated Blood Loss 20 Drains No Packing No Pathology None sent Complications No immediate complications Condition Stable Disposition PACU [facility] Billing Surgery - Charge Forward: Surgery Billing ([id number] MMT, LMT Scope)
[2024-11-22] MEDS: KETOROLAC 30 MG/ML VIAL (*BKC) IV PUSH (10:54)
[2024-11-22] MEDS: fentaNYL CITRATE INJ (*CRX) 100 MCG/2 ML VIAL 25 MCG IV PUSH ×4 (11:29→11:50)
[2024-11-22] MEDS: oxyCODONE HCL (*CRX) 5 MG TAB IR PO ×2 (12:29→12:33)
== END 2024-11-22 13:10 | disposition home or self-care (01) ==
PROVIDERS: PCP Student in an Organized Health Care Education/Training Program; Visit Provider Orthopaedic Surgery
PROC: (CPT 29870; principal; 2024-11-22 10:00)
DX: S83.231A Complex tear of medial meniscus, current injury, right knee, initial encounter (principal); S83.281A Other tear of lateral meniscus, current injury, right knee, initial encounter; M17.11 Unilateral primary osteoarthritis, right knee; M71.21 Synovial cyst of popliteal space [Baker], right knee; E07.9 Disorder of thyroid, unspecified; K82.9 Disease of gallbladder, unspecified; F41.9 Anxiety disorder, unspecified; F17.210 Nicotine dependence, cigarettes, uncomplicated; X58.XXXA Exposure to other specified factors, initial encounter; E66.9 Obesity, unspecified; Z68.36 Body mass index [BMI] 36.0-36.9, adult; Z79.891 Long term (current) use of opiate analgesic; Z98.890 Other specified postprocedural states; Z90.49 Acquired absence of other specified parts of digestive tract; Z98.84 Bariatric surgery status; Z80.9 Family history of malignant neoplasm, unspecified
CPT/HCPCS: 29880; J0690; A9270; J1100; J1885; J2003; J2004; J2250; J2405; J2704; J3010; J7120